=== PATIENT | male | born 1960 | race Caucasian/White ===

== ENCOUNTER → 2017-06-01 | Outpatient (CLI) | payer MEDICARE ==
[~2017-06-01] MED LIST: CEPH500T PO; METH10TA PO; PERC5TAB12 PO; ROBA500T PO
[2017-06-01 08:58] LABS: BLOOD GAS BASE EXCESS 4.3 mmol/L (-2-2); BLOOD GAS CARBOXYHEMOGLOBIN 1.2 % (0-4); BLOOD GAS HCO3 29 mmol/L (22-26); BLOOD GAS METHEMOGLOBIN 1.1 % (0-2); BLOOD GAS O2 HGB SATURATION 94 % (90-100); BLOOD GAS OXYGEN CONTENT 19.8 Vol % (12.0-20.0); BLOOD GAS PCO2 50 mmHG (38-42); BLOOD GAS PO2 82 mmHG (61-120); CRITICAL VALUE NO; DRAW SITE RT RADIAL; FIO2 21 %; TEMP CORR TO 98.6
[2017-06-01 08:59] LABS: NUMBER OF ARTERIAL PUNCTURES 1; STAT NO; ULNAR PULSE PRESENT
--- NOTE | 2017-06-03 10:39 | RSPPFT ---
DATE OF PROCEDURE: 06/01/17 COMMENTS: Spirometry shows FVC of 2.1 at 50% of predicted, FEV1 of 1.4 at 41%, FEV1/FVC ratio is decreased. Flow is decreased at FEF 25, FEF 50, FEF 75 and FEF 25-75. There is no response after bronchodilator treatment. Lung volumes show residual volume is normal. TLC is decreased. Diffusion capacity is mildly decreased. Flow volume loop indicates an obstructive pattern. Room air arterial blood gases show pH of 7.3, PCO2 of 50, PO2 of 82, BiCarb of 29. 6-minute walk test shows no de-saturation. IMPRESSION: 1. Moderately severe obstructive lung disease. 2. No response after bronchodilator treatment. 3. Mild restrictive lung disease. 4. Mild decrease in diffusion capacity. 5. Blood gases show compensatory respiratory acidosis. 6. 6-minute walk test show no de-saturation.
== END ==
LOC: PHRSP 08:34
PROVIDERS: ATTEND Specialist
DX: J44.9 Chronic obstructive pulmonary disease, unspecified (principal); R06.00 Dyspnea, unspecified
CPT/HCPCS: 36600; 82805; 94060; 94620; 94726; 94729